=== PATIENT | female | born 1955 | race Caucasian/White ===

== ENCOUNTER → 2018-10-09 | Outpatient (CLI) | payer BC ==
[~2018-10-09] MED LIST: ASPI-586 PO; HOLD METFORMIN - RECEIVED CONTRAST 20 ML VIAL IV SCH; HYDR-3730 PO; HYDR50TA3 PO; IOHEXOL 350 MG/ML 100 ML (OMNIPAQUE 350) VIAL IV ONE; LEVO150T6 PO; METO100T12 PO; NS 100 ML (IVPB) BAG IV ONE; POTA20TA8 PO; PRAV40TA2 PO
[2018-10-09 09:20] LABS: BUN/CREATININE RATIO 14; CALCIUM 9.3 MG/DL (8.5-10.1); CARBON DIOXIDE 26 MMOL/L (21-32); CHLORIDE 102 MMOL/L (98-107); CREATININE SERUM 0.71 MG/DL (0.60-1.30); GFR ESTIMATED > 60; GLUCOSE 106 MG/DL (70-105); POTASSIUM 3.4 MMOL/L (3.6-5.0); SODIUM 139 MMOL/L (135-145)
--- NOTE | 2018-10-09 10:40 | Diagnostic Imaging Report ---
PROCEDURE: CT head with and without contrast. TECHNIQUE: Multiple contiguous axial images were obtained through the brain before and after the administration of intravenous contrast. Auto Exposure Controls were utilized during the CT exam to meet ALARA standards for radiation dose reduction. DATE: October 09, 2018. COMPARISON: None. INDICATION: 63-year-old female, acute intractable headache. Dizziness. History of colon cancer. FINDINGS: Sensitivity for detection of brain metastasis would be most optimal with MRI brain with and without contrast if there are no contraindications. The ventricles and CSF spaces are normal in size and contour for patient age. There is no identified abnormal intracranial enhancement. No left transverse sinus and sigmoid sinus are not well contrast opacified. The right internal jugular vein is more prominent in size compared to the left. The appearance of the venous sinuses could be relating to asymmetric size. There is no mass effect or midline shift. There is no acute intracranial hemorrhage. There is no abnormal extra-axial fluid collection. There are polypoid lesions in the right and left maxillary sinuses and left frontal sinus likely reflecting mucus retention cyst. There is no air-fluid level in the paranasal sinuses. The mastoid air cells and middle ears are well aerated bilaterally. IMPRESSION: 1. No identified acute intracranial abnormality. Dictated by: Dictated on workstation # [id number]
== END ==
LOC: RAD 08:16
PROVIDERS: ATTEND Family Medicine
DX: R51 Headache (principal); R42 Dizziness and giddiness; W19.XXXD Unspecified fall, subsequent encounter; Z85.038 Personal history of other malignant neoplasm of large intestine
CPT/HCPCS: 36415; 70470; 80048

== ENCOUNTER → 2018-11-18 | Outpatient (CLI) | payer BC ==
[~2018-11-18] MED LIST changes: -HOLD METFORMIN - RECEIVED CONTRAST 20 ML VIAL IV SCH; -IOHEXOL 350 MG/ML 100 ML (OMNIPAQUE 350) VIAL IV ONE; -NS 100 ML (IVPB) BAG IV ONE; +RT-ALBUTEROL SULF 2.5 MG/3 ML PRE-MIX VIAL INH ONE
--- NOTE | 2018-11-18 13:45 | Diagnostic Imaging Report ---
INDICATION: Dyspnea. EXAMINATION: Two-view chest dated 11/18/2018. COMPARISON: 10/20/2017. FINDINGS: Heart is unremarkable. Prominence of the perihilar regions, right greater than left, also noted. There are no focal infiltrates or effusions. No pneumothorax. IMPRESSION: 1. Prominent right perihilar region, nonspecific, but similar to previous imaging, perhaps due to pulmonary hypertension. Lymphadenopathy less likely given no significant change since previous imaging. Remaining chest unremarkable. Dictated by: Dictated on workstation # [id number]
== END ==
LOC: RT 09:40
PROVIDERS: ATTEND Nurse Practitioner Family
DX: G47.33 Obstructive sleep apnea (adult) (pediatric) (principal); R06.09 Other forms of dyspnea
CPT/HCPCS: 71046; 94060; 94640; 94726; 94729

== ENCOUNTER → 2018-11-18 | Outpatient (CLI) | payer BC ==
[~2018-11-18] MED LIST changes: -RT-ALBUTEROL SULF 2.5 MG/3 ML PRE-MIX VIAL INH ONE
--- NOTE | 2018-11-18 13:17 | Diagnostic Imaging Report ---
EXAMINATION: Left knee at 10:06 a.m. INDICATION: Knee pain. FINDINGS: AP and lateral views were obtained. There is no fracture, dislocation, or acute bony abnormality evident. 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 On this study, there does seem to be slightly greater narrowing of the medial compartment of the knee joint when compared to the prior exam. The lateral compartment and the patellofemoral space are unchanged. The soft tissues are unremarkable. IMPRESSION: 1. There is no evidence for an acute bony abnormality. 2. There does seem to be slightly greater narrowing of the medial compartment of the knee joint when compared to the prior exam. Dictated by: Dictated on workstation # [id number]
--- NOTE | 2018-11-19 19:19 | Diagnostic Imaging Report ---
INDICATION: Screening The current study was also evaluated with a Computer Aided Detection (CAD) system. 3-D Tomographic imaging was also performed. Comparison made with prior examinations from 11/06/2015 and 09/30/2014. FINDINGS: There are scattered fibroglandular densities bilaterally. There are benign type calcifications in both breasts. There is no dominant mass, spiculated lesion, or suspicious calcification identified. The skin, nipples, and axillae are unremarkable. IMPRESSION: Benign. ACR BI-RADS Category 2: Benign findings. Result letter will be mailed to the patient. Note: At least 10% of breast cancer is not imaged by mammography. Dictated by: Dictated on workstation # [id number]
== END ==
LOC: RAD 09:50
PROVIDERS: ATTEND Family Medicine
DX: Z12.31 Encounter for screening mammogram for malignant neoplasm of breast (principal); M25.562 Pain in left knee
CPT/HCPCS: 73560; 77067

== ENCOUNTER → 2021-10-08 | Outpatient (CLI) | payer MEDICARE, OTHER ==
[~2021-10-08] MED LIST changes: +APIX5TAB PO; -HYDR50TA3 PO; +HYDR50TA6 PO; +POTA-169 PO; -POTA20TA8 PO
[2021-10-08 12:40] LABS: HEMATOCRIT 40 % (35-52); MEAN CORPUSCULAR HEMOGLOBIN 29 pg (25-34); MEAN CORPUSCULAR HGB CONC 33 g/dL (32-36); MEAN CORPUSCULAR VOLUME 89 fL (80-99); MEAN PLATELET VOLUME 9.4 fL (9.0-12.2); PLATELET COUNT 235 10^3/uL (130-400); WHITE BLOOD COUNT 14.5 10^3/uL (4.3-11.0)
[2021-10-08 13:06] LABS: ALANINE AMINOTRANSFERASE 22 U/L (0-55); ALBUMIN 3.9 GM/DL (3.2-4.5); ALKALINE PHOSPHATASE 122 U/L (40-136); BILIRUBIN,TOTAL 0.9 MG/DL (0.1-1.0); BUN/CREATININE RATIO 16; CALCIUM 9.5 MG/DL (8.5-10.1); CARBON DIOXIDE 21 MMOL/L (21-32); CHLORIDE 100 MMOL/L (98-107); CREATINE KINASE 28 U/L (29-168); CREATININE SERUM 0.75 MG/DL (0.60-1.30); GFR ESTIMATED 88; GLUCOSE 127 MG/DL (70-105); MAGNESIUM 1.7 MG/DL (1.6-2.4); POTASSIUM 3.9 MMOL/L (3.6-5.0); SODIUM 137 MMOL/L (135-145); TOTAL PROTEIN 7.5 GM/DL (6.4-8.2)
--- NOTE | 2021-10-08 13:14 | Diagnostic Imaging Report ---
PROCEDURE: CT chest and abdomen without contrast. TECHNIQUE: Axial images were obtained from the thoracic inlet through the iliac crest without the administration of intravenous contrast. Auto Exposure Controls were utilized during the CT exam to meet ALARA standards for radiation dose reduction. INDICATION: Difficulty breathing, lateral left chest pain, history of umbilical hernia and colon resection. COMPARISON: No priors for comparison. FINDINGS: CHEST: An irregular lesion in the juxtahilar right upper lobe anteriorly measures 2.5 x 1.8 cm and is suspicious for underlying mass. It is positioned somewhat centrally with extensive adjacent vascularity, and prior to any percutaneous biopsy, I would recommend metabolic PET/CT as its correlation. There is likely some post-obstructive disease in the right upper lobe anterior to this lesion. The subpleural right upper lobe mass measured 5 mm, and there is an irregular nodule in the superior segment of the right lower lobe measuring 7 mm. There is some left lower lobe dependent airspace like opacity without obvious volume loss. While this may be atelectasis, it is suspicious for pneumonia. There is no axillary, hilar, or mediastinal adenopathy. The thoracic aorta is atherosclerotic but nonaneurysmal. No rib lesion. ABDOMEN: Circumscribed low-density right adrenal nodule at the isthmus appears to have macroscopic fat with 1.5 cm diameter, favored to reflect an adenoma. The left adrenal is negative. Kidneys are unobstructed. The liver, spleen, and bile ducts are unremarkable. The pancreas is normal. There is no abdominal mesenteric or retroperitoneal adenopathy. There is no ascites. IMPRESSION: 1. Suspicious mass in the right upper lobe lung with additional subcentimeter subpleural nodules, indeterminate; correlative metabolic PET/CT recommended as further evaluation. 2. Left basilar posterior sulcal airspace pulmonary disease suspicious for pneumonia. 3. The abdominal portion of the study shows postsurgical changes with no acute abnormality. Likely fat-containing benign right adrenal adenoma, but this should be scrutinized at recommended PET scan as well. Dictated by: Dictated on workstation # [id number]
== END ==
LOC: RAD 12:30
PROVIDERS: ATTEND Nurse Practitioner Family
DX: R91.8 Other nonspecific abnormal finding of lung field (principal); R06.02 Shortness of breath; R07.9 Chest pain, unspecified; R09.1 Pleurisy; Z98.890 Other specified postprocedural states
CPT/HCPCS: 36415; 71250; 74150; 80053; 82550; 83735; 84484; 85027; 85379; 93005

== ENCOUNTER 2021-10-11 11:54 | Emergency (ER) | payer MEDICARE, OTHER ==
[~2021-10-11] VITALS: Ht 160 cm; Wt 122.9 kg
[~2021-10-11 11:54] MED LIST changes: -APIX5TAB PO
[2021-10-11 13:24] LABS: BASOPHILS % (AUTO) 0 % (0-10); EOSINOPHILS % (AUTO) 0 % (0-10); HEMATOCRIT 41 % (35-52); HEMOGLOBIN 13.3 g/dL (11.5-16.0); LYMPHOCYTES # (AUTO) 1.9 10^3/uL (1.0-4.0); LYMPHOCYTES % (AUTO) 10 % (12-44); MEAN CORPUSCULAR HEMOGLOBIN 29 pg (25-34); MEAN CORPUSCULAR HGB CONC 33 g/dL (32-36); MEAN CORPUSCULAR VOLUME 90 fL (80-99); MEAN PLATELET VOLUME 9.7 fL (9.0-12.2); MONOCYTES # (AUTO) 0.9 10^3/uL (0.0-1.0); MONOCYTES % (AUTO) 5 % (0-12); NEUTROPHILS # (AUTO) 15.5 10^3/uL (1.8-7.8); NEUTROPHILS % (AUTO) 84 % (42-75); PLATELET COUNT 305 10^3/uL (130-400); WHITE BLOOD COUNT 18.4 10^3/uL (4.3-11.0)
[2021-10-11 13:38] LABS: LYMPHOCYTES % (MANUAL) 11 %; MONOCYTES % (MANUAL) 1 %; NEUTROPHILS % (MANUAL) 88 %; RBC MORPH NORMAL
[2021-10-11] MEDS ORDERED: CATHETER FLUSH 10 ML SYR IV PRN (13:45)
[2021-10-11] MEDS ORDERED: HOLD METFORMIN - RECEIVED CONTRAST 20 ML VIAL IV SCH (13:45)
[2021-10-11] MEDS ORDERED: IOHEXOL 350 MG/ML 100 ML (OMNIPAQUE 350) VIAL IV ONE (13:45)
[2021-10-11] MEDS ORDERED: NS 100 ML (IVPB) BAG IV ONE (13:45)
[2021-10-11 13:48] LABS: ALBUMIN 3.8 GM/DL (3.2-4.5); POTASSIUM 4.4 MMOL/L (3.6-5.0)
[2021-10-11 13:49] LABS: CALCIUM 9.9 MG/DL (8.5-10.1)
[2021-10-11 13:51] LABS: TOTAL PROTEIN 7.3 GM/DL (6.4-8.2)
[2021-10-11 13:52] LABS: BILIRUBIN,TOTAL 0.4 MG/DL (0.1-1.0)
[2021-10-11 13:54] LABS: CREATININE SERUM 0.76 MG/DL (0.60-1.30)
[2021-10-11] MEDS ORDERED: fentaNYL INJ 100 MCG/2 ML AMP IVP ONE (14:15)
[2021-10-11 14:54] LABS: BILIRUBIN,URINE NEGATIVE (NEGATIVE); CLARITY,URINE CLEAR; COLOR,URINE YELLOW; GLUCOSE, URINE (UA) NEGATIVE (NEGATIVE); KETONES,URINE NEGATIVE (NEGATIVE); LEUKOCYTE ESTERASE ,URINE NEGATIVE (NEGATIVE); NITRITE,URINE NEGATIVE (NEGATIVE); PH,URINE 6.5 (5-9); PROTEIN,URINE NEGATIVE (NEGATIVE)
--- NOTE | 2021-10-11 15:13 | Diagnostic Imaging Report ---
EXAMINATION: CT angiography chest with and without, CT abdomen and pelvis with and without. TECHNIQUE: Noncontrast enhanced helical images were obtained through the chest, abdomen and pelvis. Contrast enhanced thin section helical images were obtained through the chest, abdomen and pelvis with intravenous contrast timed for the optimal opacification of the arterial structures per departmental CTA protocol. Post-processing, retro reconstructions and interpretation of angiographic images of the vessels was performed. 3D MIP reconstructions were performed and reviewed. All CT scans use one or more of the following dose optimizing techniques: automated exposure control, MA and/or KvP adjustment based on patient size and exam type or iterative reconstruction. HISTORY: Chest pain, colon cancer COMPARISON: 10/08/2021 FINDINGS: There are fairly extensive lower lobe pulmonary emboli bilaterally. No evidence of right heart strain. There is an infarct in the left lower lobe. No edema or pneumonia. No pleural effusion. No pneumothorax. There is a stable 5 mm average diameter nodule in the superior segment of the right lower lobe. There is no axillary or supraclavicular lymphadenopathy. There is no mediastinal lymphadenopathy. Heart size is normal. There are mild coronary artery calcifications. No pericardial effusion. Aorta is normal in caliber. The liver is normal without focal lesion. There is no biliary ductal dilation. Gallbladder is not present. Pancreas is normal. Spleen is normal. There is a stable 1.8 cm right adrenal nodule. There is a small cyst in the right kidney. No suspicious renal lesions. There is no hydronephrosis. Urinary bladder is normal. Bowel is normal in caliber without obstruction or inflammation. There has been a right hemicolectomy. There has been a ventral hernia repair. No free fluid or air. No abdominal or pelvic lymphadenopathy. Aorta is normal in caliber without aneurysm. There are no suspicious osseus lesions. IMPRESSION: 1. Extensive bilateral lower lobe pulmonary emboli with an infarct in the left lower lobe. No right heart strain. 2. Stable 1.8 cm right adrenal adenoma. 3. Stable 5 mm superior segment right lower lobe pulmonary nodule. Critical findings called to Dr. Sotelo by Dr. Conrad on 10/11/2021 at 3:10 PM. Dictated by: Dictated on workstation # [id number]
[2021-10-11 15:20] LABS: BACTERIA,URINE NEGATIVE /HPF; SQUAMOUS EPITHELIAL CELL,UR 0-2 /HPF
--- NOTE | 2021-10-11 16:26 | Diagnostic Imaging Report ---
PROCEDURE: US Venous Lower Ext Jesus. TECHNIQUE: Multiple real-time grayscale images were obtained over the lower extremities in various projections, bilaterally. Additional duplex Doppler and color Doppler images were also obtained. INDICATION: Pulmonary embolism. FINDINGS: There is occlusive thrombosis of the left common femoral vein, which extends into the profunda vein. The left superficial femoral and popliteal veins are patent as are visualized left calf veins. Deep veins throughout the right lower extremity are patent with compressibility and response to augmentation. IMPRESSION: Occlusive thrombus in the left common femoral vein. Otherwise, no additional thrombus or occlusion is seen within the deep veins of either lower extremity. Dictated by: Dictated on workstation # [id number]
--- NOTE | 2021-10-11 16:37 | ED General ---
General Chief Complaint: Respiratory Problems Stated Complaint: SOA - BACK PAIN - COUGH Nursing Triage Note: respiritory sx started on friday didnt feel very well shortness of breath started on friday, friday dr osborne sent her over here to have and out patient ct and blood work and was found to have pneumonia. doxycycline and cefdinr and prednisone prescribed by dr osborne Source of Information: Patient, Old Records Exam Limitations: No Limitations Allergies and Home Medications Allergies Coded Allergies: Penicillins (Verified Allergy, Intermediate, RASH, 10/11/21) Sulfa (Sulfonamide Antibiotics) (Verified Allergy, Intermediate, RASH, 10/11/21) codeine (Verified Allergy, Intermediate, TOO STRONG-CANT STAND UP STRAIGHT, 10/11/21) Patient Home Medication List Aspirin (Aspir 81) 81 Mg Tablet.dr, 81 MG PO DAILY, (Reported) Entered as Reported by: MATY POLANCO on 01/17/16 1322 Hydrochlorothiazide (Hydrochlorothiazide) 50 Mg Tablet, 50 MG PO DAILY, (Reported) Entered as Reported by: MATY POLANCO on 01/17/16 1322 Hydrocodone/Acetaminophen (Lortab 7.5-325 mg Tablet) 1 Each Tablet, 1 EACH PO Q4H Prescribed by: DEN SELF on 01/26/16 0935 Levothyroxine Sodium (Levothyroxine Sodium) 150 Mcg Tablet, 150 MCG PO DAILY, (Reported) Entered as Reported by: MATY POLANCO on 01/17/16 1322 Metoprolol Tartrate (Metoprolol Tartrate) 100 Mg Tablet, 100 MG PO BID, (Reported) Entered as Reported by: MATY POLANCO on 01/17/16 1322 Potassium Chloride (Klor-Con M20) 20 Meq Tab.er.prt, 20 MEQ PO QID, (Reported) Entered as Reported by: MATY POLANCO on 01/17/16 1322 Pravastatin Sodium (Pravastatin Sodium) 40 Mg Tablet, 40 MG PO DAILY, (Reported) Entered as Reported by: MATY POLANCO on 01/17/16 1322 Past Ghyhfld-Bkoirh-Fvxyib Hx Patient Social History Tobacco Use?: No Smoking Status: Former Smoker Use of E-Cig and/or Vaping dev: No Substance use?: No Alcohol Use?: No Pt feels they are or have been: No Immunizations Up To Date Influenza Vaccine Up-to-Date: Yes; Up-to-Date First/Initial COVID19 Vaccinat: june 2020 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 9.0oz. 124.976372si; 48.00 BMI Method: Progress/Results/Core Measures Suspected Sepsis SIRS Temperature: Pulse: 70 Respiratory Rate: 18 Laboratory Tests 10/11/21 12:50: White Blood Count 18.4H Blood Pressure 137 /84 Mean: 101 Laboratory Tests 10/11/21 12:50: Creatinine 0.76, Platelet Count 305, Total Bilirubin 0.4 Results/Orders Lab Results Laboratory Tests Test 10/11/21 12:29 10/11/21 12:50 10/11/21 14:40 Range/Units Influenza Type A (RT-PCR) Not Detected Not Detecte Influenza Type B (RT-PCR) Not Detected Not Detecte SARS-CoV-2 RNA (RT-PCR) Not Detected Not Detecte White Blood Count 18.4 H 4.3-11.0 10^3/uL Red Blood Count 4.54 3.80-5.11 10^6/uL Hemoglobin 13.3 11.5-16.0 g/dL Hematocrit 41 35-52 % Mean Corpuscular Volume 90 80-99 fL Mean Corpuscular Hemoglobin 29 25-34 pg Mean Corpuscular Hemoglobin Concent 33 32-36 g/dL Red Cell Distribution Width 14.0 10.0-14.5 % Platelet Count 305 130-400 10^3/uL Mean Platelet Volume 9.7 9.0-12.2 fL Immature Granulocyte % (Auto) 1 % Neutrophils (%) (Auto) 84 H 42-75 % Lymphocytes (%) (Auto) 10 L 12-44 % Monocytes (%) (Auto) 5 0-12 % Eosinophils (%) (Auto) 0 0-10 % Basophils (%) (Auto) 0 0-10 % Neutrophils # (Auto) 15.5 H 1.8-7.8 10^3/uL Lymphocytes # (Auto) 1.9 1.0-4.0 10^3/uL Monocytes # (Auto) 0.9 0.0-1.0 10^3/uL Eosinophils # (Auto) 0.0 0.0-0.3 10^3/uL Basophils # (Auto) 0.0 0.0-0.1 10^3/uL Immature Granulocyte # (Auto) 0.2 H 0.0-0.1 10^3/uL Neutrophils % (Manual) 88 % Lymphocytes % (Manual) 11 % Monocytes % (Manual) 1 % Blood Morphology Comment NORMAL Sodium Level 138 135-145 MMOL/L Potassium Level 4.4 3.6-5.0 MMOL/L Chloride Level 103 98-107 MMOL/L Carbon Dioxide Level 23 21-32 MMOL/L Anion Gap 12 5-14 MMOL/L Blood Urea Nitrogen 16 7-18 MG/DL Creatinine 0.76 0.60-1.30 MG/DL Estimat Glomerular Filtration Rate 87 BUN/Creatinine Ratio 21 Glucose Level 120 H 70-105 MG/DL Calcium Level 9.9 8.5-10.1 MG/DL Corrected Calcium 10.1 8.5-10.1 MG/DL Total Bilirubin 0.4 0.1-1.0 MG/DL Aspartate Amino Transf (AST/SGOT) 30 5-34 U/L Alanine Aminotransferase (ALT/SGPT) 40 0-55 U/L Alkaline Phosphatase 126 40-136 U/L C-Reactive Protein High Sensitivity 3.50 H 0.00-0.50 MG/DL Total Protein 7.3 6.4-8.2 GM/DL Albumin 3.8 3.2-4.5 GM/DL Lipase 20 8-78 U/L Urine Color YELLOW Urine Clarity CLEAR Urine pH 6.5 5-9 Urine Specific [place] <=1.005 1.016-1.022 Urine Protein NEGATIVE NEGATIVE Urine Glucose (UA) NEGATIVE NEGATIVE Urine Ketones NEGATIVE NEGATIVE Urine Nitrite NEGATIVE NEGATIVE Urine Bilirubin NEGATIVE NEGATIVE Urine Urobilinogen 0.2 < = 1.0 MG/DL Urine Leukocyte Esterase NEGATIVE NEGATIVE Urine RBC (Auto) NEGATIVE NEGATIVE Urine RBC NONE /HPF Urine WBC NONE /HPF Urine Squamous Epithelial Cells 0-2 /HPF Urine Crystals NONE /LPF Urine Bacteria NEGATIVE /HPF Urine Casts NONE /LPF Urine Mucus NEGATIVE /LPF Urine Culture Indicated NO My Orders Orders - CATHERINE GARCIA MD Covid 19 Inhouse Test (10/11/21 12:25) Influenza A And B By Pcr (10/11/21 12:25) Cbc With Automated Diff (10/11/21 13:05) Comprehensive Metabolic Panel (10/11/21 13:05) Hs C Reactive Protein (10/11/21 13:05) Lipase (10/11/21 13:05) Ua Culture If Indicated (10/11/21 13:05) Ed Iv/Invasive Line Start (10/11/21 13:05) Ct Chaya Chest/Noang Abd-Pelv W (10/11/21 13:08) Manual Differential (10/11/21 12:50) Iohexol Injection (Omnipaque 350 Mg/Ml 1 (10/11/21 13:45) Received Contrast (Hold Metformin- Contr (10/11/21 13:45) Sodium Chloride Flush (Catheter Flush Sy (10/11/21 13:45) Ns (Ivpb) (Sodium Chloride 0.9% Ivpb Bag (10/11/21 13:45) Fentanyl Inj (Sublimaze Injection) (10/11/21 14:15) Us Venous Lower Ext Jesus (10/11/21 15:24) Apixaban Tablet (Eliquis Tablet) (10/11/21 16:45) Tramadol Tablet (Ultram Tablet) (10/11/21 16:45) Medications Given in ED Current Medications Medications Dose Ordered Sig/Maryann Route Start Time Stop Time Status Last Admin Dose Admin Fentanyl Citrate 50 mcg ONCE ONCE IVP 10/11/21 14:15 10/11/21 14:16 DC 10/11/21 14:14 50 MCG Iohexol 100 ml ONCE ONCE IV 10/11/21 13:45 10/11/21 13:46 DC 10/11/21 14:50 86 ML Sodium Chloride 10 ml NEEDED PRN IV 10/11/21 13:45 10/11/21 14:50 10 ML Sodium Chloride 100 ml ONCE ONCE IV 10/11/21 13:45 10/11/21 13:46 DC 10/11/21 14:50 80 ML Vital Signs/I&O 10/11/21 12:33 Temp 37.5 Pulse 70 Resp 18 B/P (MAP) 137/84 (101) Pulse Ox 95 O2 Delivery Room Air Capillary Refill : Blood Pressure Mean: 101 Departure Impression Primary Impression: Bilateral pulmonary embolism Additional Impressions: Left leg DVT Qualified Codes: I82.412 - Acute embolism and thrombosis of left femoral vein Leukocytosis Qualified Codes: D72.829 - Elevated white blood cell count, unspecified History of colon cancer Pulmonary nodule Disposition: HOME, SELF-CARE Condition: Stable Departure-Patient Inst. Referrals: SAM OSBORNE MD (PCP/Family) Primary Care Physician Patient Instructions: Deep Vein Thrombosis (Blood Clots in the Legs) (DC), Pulmonary Embolism (Blood Clot in the Lungs), Pulmonary Nodule Add. Discharge Instructions: 1. Blood clots You have blood clots in your left leg and in both lungs. Continue on blood thinners (Eliquis) until otherwise instructed. Please follow-up with your primary care provider within 1 week. Seek medical care if you have any unusual bleeding or significant trauma such as fall with head injury, motor vehicle accident, etc. while on your blood thinner. You should discuss plan for further evaluation of your blood clot with your primary care provider. Consultation to a greens tier may be warranted. Contact information for Dr. Segura is below for your convenience. 2. Pulmonary nodule The significance of the pulmonary nodule in your right lung is unknown at this time. Should be monitored by your primary care provider. Please discuss this at your follow-up appointment. 3. Leukocytosis Your white blood cell count was elevated today. That may be related to inflammation from the blood clots, a coexisting pneumonia, or some other cause. Please complete antibiotics as previously prescribed. Discuss when you should have your blood work repeated to monitor your high white blood cell count at your follow-up appointment. 4. Return precautions Please return to the ER if you have any unusual bleeding while on blood thinners, significant trauma, worsening shortness of breath, escalating pain, lightheadedness or dizziness, etc. 5. Pain control For mild pain take Tylenol (acetaminophen) up to 1000 mg every 6 hours as needed. Add Ultram (tramadol) as prescribed for pain not controlled by Tylenol. Do not take NSAID medications as this may cause a higher risk of abnormal bleeding while on blood thinners. All discharge instructions reviewed with patient and/or family. Voiced understanding. Scripts Apixaban (Eliquis) 5 Mg Tablet 5 MG PO BID for 30 Days, #74 TAB TAKE 2 TABLETS BID X 7 DAYS, THEN 1 TABLET BID Prov: CATHERINE GARCIA MD 10/11/21 CATHERINE GARCIA MD Oct 11, 2021 16:37
[2021-10-11] MEDS ORDERED: APIX5TAB PO (16:44)
[2021-10-11] MEDS ORDERED: APIXABAN 5 MG (ELIQUIS) TABLET PO ONE (16:45)
[2021-10-11 16:57] VITALS: BP 153/88
== END 2021-10-11 16:57 | disposition home or self-care (01) ==
LOC: EDUNIT# 11:54 → ER 11:57
DX: I26.99 Other pulmonary embolism without acute cor pulmonale (principal); I82.412 Acute embolism and thrombosis of left femoral vein; R91.8 Other nonspecific abnormal finding of lung field; D72.829 Elevated white blood cell count, unspecified; Z85.038 Personal history of other malignant neoplasm of large intestine; Z87.891 Personal history of nicotine dependence; Z20.822 Contact with and (suspected) exposure to COVID-19
CPT/HCPCS: 36415; 71275; 74177; 80053; 81000; 83690; 85007; 85027; 86141; 87636; 93970

== ENCOUNTER 2021-10-14 14:55 | Emergency (ER) | payer MEDICARE, OTHER ==
[~2021-10-14] VITALS: Ht 160 cm; Wt 123.5 kg
[~2021-10-14 14:55] MED LIST changes: +APIX5TAB PO
[2021-10-14 15:02] VITALS: BP 132/63
--- NOTE | 2021-10-14 15:12 | ED Lower Extremity ---
General Chief Complaint: Lower Extremity Stated Complaint: LEFT LEG SWELLING/POSS BLOOD CLOT Source: patient Exam Limitations: no limitations History of Present Illness Date Seen by Provider: Oct 14, 2021 Time Seen by Provider: 15:00 Initial Comments Patient is a 66-year-old female who presents to the emergency room with a chief complaint of concern for swelling in her left lower leg and foot. She was seen and evaluated 3 days ago in the emergency department and diagnosed with a left lower extremity DVT as well as bilateral lower lung pulmonary embolisms. She was started on Eliquis. She states she has been taking her medication as directed. She is not short of breath. She does not have hemoptysis or a prod uctive cough. She does not have significant pain in her leg but was primarily concerned about the swelling. Daughter presents with her and states that their discharge instructions had any changes to the leg that they needed to follow-up with her primary care doctor. The patient has a scheduled follow-up appointment with Dr. Jaramillo tomorrow morning at 8 AM. No other complaints of illness or injury. Onset: other (Today) Severity: mild Pain/Injury Location: left leg, left foot Allergies and Home Medications Allergies Coded Allergies: Penicillins (Verified Allergy, Intermediate, RASH, 10/11/21) Sulfa (Sulfonamide Antibiotics) (Verified Allergy, Intermediate, RASH, 10/11/21) codeine (Verified Allergy, Intermediate, TOO STRONG-CANT STAND UP STRAIGHT, 10/11/21) Patient Home Medication List Home Medication List Reviewed: Yes Apixaban (Eliquis) 5 Mg Tablet, 5 MG PO BID Prescribed by: CATHERINE SIERRA on 10/11/21 1644 Aspirin (Aspir 81) 81 Mg Tablet., 81 MG PO DAILY, (Reported) Entered as Reported by: MATY POLANCO on 01/17/16 1322 Hydrochlorothiazide (Hydrochlorothiazide) 50 Mg Tablet, 50 MG PO DAILY, (Reported) Entered as Reported by: MATY POLANCO on 01/17/16 1322 Hydrocodone/Acetaminophen (Lortab 7.5-325 mg Tablet) 1 Each Tablet, 1 EACH PO Q4H Prescribed by: DEN SELF on 01/26/16 0935 Levothyroxine Sodium (Levothyroxine Sodium) 150 Mcg Tablet, 150 MCG PO DAILY, (Reported) Entered as Reported by: MATY POLANCO on 01/17/16 1322 Metoprolol Tartrate (Metoprolol Tartrate) 100 Mg Tablet, 100 MG PO BID, (Re ported) Entered as Reported by: MATY POLANCO on 01/17/16 132 Potassium Chloride (Klor-Con M20) 20 Meq Tab.er.prt, 20 MEQ PO QID, (Reported) Entered as Reported by: MATY POLANCO on 01/17/16 132 Pravastatin Sodium (Pravastatin Sodium) 40 Mg Tablet, 40 MG PO DAILY, (Reported) Entered as Reported by: MATY POLANCO on 01/17/16 132 Review of Systems Constitutional: see HPI Respiratory: no symptoms reported Cardiovascular: no symptoms reported Gastrointestinal: no symptoms reported Musculoskeletal: other (Left leg swelling) Skin: no symptoms reported All Other Systems Reviewed Negative Unless Noted: Yes Past Gizxqps-Pcuvar-Fufkft Hx Immunizations Up To Date First/Initial COVID19 Vaccinat: june 2020 Past Medical History Sleep Apnea Reproductive Disorders: No Sexually Transmitted Disease: No HIV/AIDS: No Arthritis Loss of Vision: Bilateral Hearing Impairment: Denies Colon Adverse Reaction/Blood Tranf: No Physical Exam Vital Signs Capillary Refill : Height, Weight, BMI Height: 5'3.00" Weight: 274lbs. 9.0oz. 124.208763xl; 48.00 BMI Method: General Appearance: WD/WN, no apparent distress HEENT: PERRL/EOMI Neck: normal inspection Cardiovascular: regular rate, rhythm (60s) Respiratory: lungs clear, normal breath sounds, no respiratory distress, no accessory muscle use, other (Room air oxygen saturation 97%) Hips: bilateral hip non-tender, bilateral hip normal inspection, bilateral hip normal range of motion, bilateral hip no evidence of injury Legs: right leg non-tender, right leg normal inspection, right leg normal range of motion, right leg no evidence of injury; left leg swelling Knees: bilateral knee normal inspection Ankles: bilateral ankle non-tender; right ankle normal inspection; bilateral ankle normal range of motion, bilateral ankle no evidence of injury; left ankle swelling Feet: right foot non-tender, right foot normal inspection, right foot normal range of motion, right foot no evidence of injury; left foot swelling Neurologic/Psychiatric: alert, normal mood/affect, oriented x 3 Skin: normal color, warm/dry Departure Impression Primary Impression: Left leg swelling Additional Impressions: DVT (deep venous thrombosis) Qualified Codes: I82.402 - Acute embolism and thrombosis of unspecified deep veins of left lower extremity anticoagulated on eliquis Disposition: HOME, SELF-CARE Condition: Stable Departure-Patient Inst. Decision time for Depature: 15:11 Referrals: SAM JARAMILLO MD (PCP/Family) Primary Care Physician Patient Instructions: Deep Vein Thrombosis (Blood Clots in the Legs) (DC) Add. Discharge Instructions: You should expect swelling in the left leg due to the blood clot. This may wax and wane in severity. Elevate your left leg to help reduce the swelling. Continue the Eliquis as directed. Always take this medication with food. Keep your follow-up appointment with Dr. Jaramillo tomorrow. If you have any sudden worsening chest pain or shortness of breath please come back to the emergency department for reevaluation. Copy Copies To 1: SAM JARAMILLO MD, KATHRYN M MD Oct 14, 2021 15:12
== END 2021-10-14 15:22 | disposition home or self-care (01) ==
LOC: EDUNIT# 14:55 → ER 14:58
DX: I82.402 Acute embolism and thrombosis of unspecified deep veins of left lower extremity (principal); Z79.01 Long term (current) use of anticoagulants
CPT/HCPCS: 99281

== ENCOUNTER 2022-01-01 09:04 | Outpatient (RCR) | payer MEDICARE, OTHER | END 2022-01-25 | disposition home or self-care (01) | LOC: ONC 09:04 | PROVIDERS: ATTEND Internal Medicine Hematology & Oncology | DX: I26.99 Other pulmonary embolism without acute cor pulmonale (principal); R91.1 Solitary pulmonary nodule; J45.909 Unspecified asthma, uncomplicated; E78.5 Hyperlipidemia, unspecified; E03.9 Hypothyroidism, unspecified; I10 Essential (primary) hypertension | CPT/HCPCS: 99204 ==

== ENCOUNTER → 2022-02-14 | Outpatient (CLI) | payer MEDICARE, OTHER ==
--- NOTE | 2022-02-14 13:39 | Diagnostic Imaging Report ---
Indication: Routine screening. Comparison is made with prior mammograms from 11/18/2018 and 11/06/2015. 2-D and 3-D bilateral screening mammography was performed with CAD. Scattered fibroglandular densities are identified bilaterally. There are benign calcifications bilaterally. No mass or malignant-appearing microcalcifications are seen. Axillae are unremarkable. IMPRESSION: BI-RADS Category 2 No mammographic features suspicious for malignancy are identified. ACR BI-RADS Category 2: Benign findings. Result letter will be mailed to the patient. Note: At least 10% of breast cancer is not imaged by mammography. Dictated by: Dictated on workstation # [id number]
== END ==
LOC: RAD 11:05
PROVIDERS: ATTEND Nurse Practitioner Family
DX: Z12.31 Encounter for screening mammogram for malignant neoplasm of breast (principal)
CPT/HCPCS: 77063; 77067

== ENCOUNTER 2022-04-02 09:19 | Outpatient (RCR) | payer MEDICARE, OTHER ==
[2022-04-02 09:38] LABS: BASOPHILS # (AUTO) 0.1 10^3/uL (0.0-0.1); BASOPHILS % (AUTO) 0 % (0-10); EOSINOPHILS # (AUTO) 0.1 10^3/uL (0.0-0.3); EOSINOPHILS % (AUTO) 1 % (0-10); HEMATOCRIT 40 % (35-52); HEMOGLOBIN 12.5 g/dL (11.5-16.0); LYMPHOCYTES # (AUTO) 2.8 10^3/uL (1.0-4.0); LYMPHOCYTES % (AUTO) 21 % (12-44); MEAN CORPUSCULAR HEMOGLOBIN 29 pg (25-34); MEAN CORPUSCULAR HGB CONC 31 g/dL (32-36); MEAN CORPUSCULAR VOLUME 91 fL (80-99); MEAN PLATELET VOLUME 9.4 fL (9.0-12.2); MONOCYTES % (AUTO) 8 % (0-12); NEUTROPHILS # (AUTO) 9.1 10^3/uL (1.8-7.8); NEUTROPHILS % (AUTO) 69 % (42-75); PLATELET COUNT 386 10^3/uL (130-400); WHITE BLOOD COUNT 13.1 10^3/uL (4.3-11.0)
[2022-04-02 10:16] LABS: ALBUMIN 3.8 GM/DL (3.2-4.5); BILIRUBIN,TOTAL 0.3 MG/DL (0.1-1.0); CALCIUM 9.6 MG/DL (8.5-10.1); CREATININE SERUM 0.78 MG/DL (0.60-1.30); POTASSIUM 3.9 MMOL/L (3.6-5.0); TOTAL PROTEIN 7.5 GM/DL (6.4-8.2)
== END 2022-04-27 | disposition home or self-care (01) ==
LOC: ONC 09:19
PROVIDERS: ATTEND Internal Medicine Hematology & Oncology
DX: C18.9 Malignant neoplasm of colon, unspecified (principal); J45.909 Unspecified asthma, uncomplicated; E78.5 Hyperlipidemia, unspecified; E03.9 Hypothyroidism, unspecified; I10 Essential (primary) hypertension
CPT/HCPCS: 80053; 85025; G0463; 99213

== ENCOUNTER → 2023-03-31 | Outpatient (CLI) | payer MEDICARE, OTHER ==
--- NOTE | 2023-04-01 09:43 | Diagnostic Imaging Report ---
EXAMINATION: 3D bilateral screening mammogram with CAD. INDICATION: Screening. COMPARISON: This study was compared to the prior exams of 02/14/2022 and 11/18/2018. PERSONAL HISTORY: At this time, there are no current complaints. FINDINGS: There are scattered areas of fibroglandular density. Overall, there does not appear to have been any significant change when compared to the prior exam. There is no primary or secondary sign of malignancy noted. IMPRESSION: There is no radiographic evidence for malignancy. ACR BI-RADS Category 1: Negative. Result letter will be mailed to the patient. Note: At least 10% of breast cancer is not imaged by mammography. Dictated by: Dictated on workstation # [id number]
== END ==
LOC: RAD 14:16
PROVIDERS: ATTEND Family Medicine
DX: Z12.31 Encounter for screening mammogram for malignant neoplasm of breast (principal)
CPT/HCPCS: 77063; 77067